=== PATIENT | female | born 1990 | race Caucasian/White ===

== ENCOUNTER 2020-06-01 12:59 | Emergency (ER) | payer MEDICAID ==
[~2020-06-01] VITALS: Ht 175.3 cm; Wt 108.4 kg
[2020-06-01 13:02] VITALS: BP 137/68
--- NOTE | 2020-06-01 13:27 | NUR ---
30 YO F BIB SELF FOR C/C OF 10/10 MID LOWER ABDOMINAL PAIN AND BILATERAL LOWER BACK PAIN X2 DAYS DESCRIBED "PRESSURE" AND INTERMITTENT "SHARP" PAINS. PT REPORTS HAVING A "CYST" ON LEFT SIDE VAGINAL LABIA THAT SHE HAS BEEN TREATING WITH WARM COMPRESS, DENIES ANY DRAINAGE. DENIES DYSURIA OR FREQUENCY. PT REPORTS NAUSEA NO VOMITING. LBM WAS YESTERDAY SOFT AND FORMED. PT STATES "I HAVE NOT EATEN IN TWO DAYS FROM THE PAIN." DENIES OTC MEDS. BED LOCKED AND IN LOWEST POSITION. SIDE RAILS X1. MED HX: APPENDECTOMY, CHOLECYSTECTOMY NKA
--- NOTE | 2020-06-01 13:57 | NUR ---
ERMD AT BEDSIDE EVALUATING PT
--- NOTE | 2020-06-01 14:08 | NUR ---
LAB AT BEDSIDE
[2020-06-01 14:18] LABS: BASOPHILS # (AUTO) 0.1 K/uL (0.00-0.22); BASOPHILS % (AUTO) 0.6 % (0.0-2.0); EOSINOPHILS # (AUTO) 0.2 K/uL (0-0.4); EOSINOPHILS % (AUTO) 1.7 % (0.0-4.0); HEMATOCRIT 37.9 % (36-48); HEMOGLOBIN 12.6 g/dL (12.0-16.0); LYMPHOCYTES % (AUTO) 13.7 % (20.5-51.1); MEAN CORPUSCULAR HEMOGLOBIN 31 pg (27-31); MEAN CORPUSCULAR HGB CONC 33 g/dL (33-37); MEAN CORPUSCULAR VOLUME 91.6 fL (80-94); MONOCYTES # (AUTO) 0.8 K/uL (0.8-1.0); MONOCYTES % (AUTO) 5.5 % (1.7-9.3); NEUTROPHILS # (AUTO) 11.3 K/uL (1.8-7.7); NEUTROPHILS % (AUTO) 78.5 % (42.2-75.2); PLATELET COUNT (AUTO) 236 K/uL (140-450); RED BLOOD CELL COUNT(AUTO) 4.13 MIL/uL (4.20-5.40); RED CELL DISTRIBUTION WIDTH 13.6 % (11.6-13.7); WHITE BLOOD COUNT (AUTO) 14.4 K/uL (4.8-10.8)
[2020-06-01 14:20] LABS: APPEARANCE,URINE HAZY (CLEAR); BILIRUBIN,URINE NEGATIVE (NEGATIVE); BLOOD, URINE TRACE-I (NEGATIVE); COLOR,URINE YELLOW (YELLOW); LEUKOCYTE ESTERASE ,URINE TRACE (NEGATIVE); NITRITE, URINE POSITIVE (NEGATIVE); UGLUCOSE NEGATIVE (NEGATIVE)
[2020-06-01 14:30] LABS: ALBUMIN 3.5 g/dL (3.4-5.0); ANION GAP 10.6 (8-16); CARBON DIOXIDE 25.4 mmol/L (21-32); TOTAL BILIRUBIN 1.2 mg/dL (0.0-1.0)
[2020-06-01] MEDS: MORPHINE SULFATE 4 MG/ML SYR IVP ONE (14:35)
[2020-06-01] MEDS: ONDANSETRON 4 MG/2 ML VIAL IVP ONE (14:36)
--- NOTE | 2020-06-01 14:48 | NUR ---
CT CALLED TO INFORM THAT PT IS READY FOR CT
--- NOTE | 2020-06-01 14:49 | NUR ---
PT TAKEN TO CT VIA WHEELCHAIR
--- NOTE | 2020-06-01 15:05 | NUR ---
PT RETURNED FROM CT
[2020-06-01] MEDS ORDERED: SULFAMETH/TRIMETH 400/80MG 1 TAB ONE (16:15)
[2020-06-01] MEDS ORDERED: BACITRACIN OINT 500 UNITS/GM PKT TP ONE (16:16)
[2020-06-01] MEDS: DOXYCYCLINE 100 MG CAP PO SCH (16:23)
[2020-06-01] MEDS ORDERED: DOXYCYCLINE 100 MG CAP ONE (16:25)
[2020-06-01] MEDS ORDERED: CEPH500C16 PO (16:48)
[2020-06-01] MEDS ORDERED: DOXY100C9 PO (16:48)
[2020-06-01] MEDS ORDERED: IBUP-1842 PO (16:48)
[2020-06-01] MEDS ORDERED: HYDR-5080 PO (16:48)
[2020-06-01 17:00] VITALS: BP 103/59
--- NOTE | 2020-06-01 17:00 | NUR ---
Patient discharged with v/s stable. Written and verbal after care instructions given and explained. Patient alert, oriented and verbalized understanding of instructions. Ambulatory with steady gait. All questions addressed prior to discharge. ID band removed. Patient advised to follow up with PMD. Rx of Keflex, Dixycycline, Hydrocodone, and Motrin given. Patient educated on indication of medication including possible reaction and side effects. Opportunity to ask questions provided and answered. Addendum: 06/01/20 at 1717 by [email or web address] Patient discharged with v/s stable. Written and verbal after care instructions given and explained. Patient alert, oriented and verbalized understanding of instructions. Ambulatory with steady gait. All questions addressed prior to discharge. ID band removed. Patient advised to follow up with PMD. Rx of Keflex, Dixycycline, Hydrocodone, and Motrin given. Patient educated on indication of medication including possible reaction and side effects. Opportunity to ask questions provided and answered
== END 2020-06-01 17:00 | disposition home or self-care (01) ==
LOC: MED 12:59
DX: N76.4 Abscess of vulva (principal); N39.0 Urinary tract infection, site not specified; R10.2 Pelvic and perineal pain
CPT/HCPCS: 36415; 56405; 74177; 80053; 81001; 81025; 84702; 85025; 87086; 96374; 96375; 99285; J2270; J2405; Q9967

== ENCOUNTER 2020-06-03 14:20 | Emergency (ER) | payer MEDICAID ==
[~2020-06-03] VITALS: Ht 175.3 cm; Wt 104.3 kg
[~2020-06-03 14:20] MED LIST: CEPH500C16 PO; DOXY100C9 PO; HYDR-5080 PO; IBUP-1842 PO
[2020-06-03 14:21] VITALS: BP 136/93
--- NOTE | 2020-06-03 14:34 | NUR ---
PT AMBULATED TO BED 4.
--- NOTE | 2020-06-03 14:35 | NUR ---
30Y F returning to be checked for vaginal cyst. Reports the size has went down "from a orange to a grape" but still reports pain. Admits that she hasn't picked up her abx but will do so today.
--- NOTE | 2020-06-03 14:38 | NUR ---
ERMD evaluating pt, with me RN as a extras casting director. Addendum: 06/03/20 at 1440 by VEL ERMD performing vaginal exam with pt, with RN as a extras casting director.
[2020-06-03] MEDS ORDERED: ACET-9800 PO (14:44)
[2020-06-03 14:50] VITALS: BP 136/93
--- NOTE | 2020-06-03 14:50 | NUR ---
Patient discharged with v/s stable. Written and verbal after care instructions given and explained. Patient verbalized understanding. Ambulatory with steady gait. All questions addressed prior to discharge. Advised to follow up with PMD.
== END 2020-06-03 14:50 | disposition home or self-care (01) ==
LOC: MED 14:20
DX: N76.4 Abscess of vulva (principal); Z79.899 Other long term (current) drug therapy
CPT/HCPCS: 99281